=== PATIENT | male | born 1965 | race Caucasian/White ===

== ENCOUNTER 2020-05-28 04:43 | Emergency (ER) | payer OTHER ==
[~2020-05-28] VITALS: Ht 175.3 cm; Wt 74.8 kg
[2020-05-28] MEDS ORDERED: IBUPROFEN 400 MG TAB PO ONE (05:15)
[2020-05-28] MEDS ORDERED: IBUPROFEN 400 MG TAB ONE (05:33)
[2020-05-28] MEDS ORDERED: TETANUS/DIPHTHERIA TOX ADULT 0.5 ML SYR ONE (05:33)
[2020-05-28] MEDS ORDERED: AUGMENTIN 500-1 EACH PO (05:37)
[2020-05-28] MEDS ORDERED: NAPROSYN500 MG PO (05:37)
--- NOTE | 2020-05-28 05:44 | Emergency Department Note ---
History of Present Illnes History of Present Illness Chief Complaint: Laceration History of Present Illness This is a 54 year old male Chief Complaint Comment PT C/O LACERATION TO POSTERIOR RT ELBOW AREA, STATES HE WAS AT WORK AND HIS GLOVED RT HAND GOT CAUGHT IN A CONVEYOR BELT, WHEN PT WENT TO [employer], HIS ELBOW SOME HOW BRUSHED UP AGAINST A PIECE OF METAL AND CAUSED A LARGE LACERATION TO THE POSTERIOR ASPECT OF PTS RIGHT ELBOW. PT HAS LARGE BANDAGE IN PLACE, REMOVED AND NOTED TO HAVE A 10-12 CM LACERATION TO AREA, EDGES ARE SLIGHTLY JAGGED, MILD BLEEDING NOTED, REDRESSED FOR MD TO EVAL FOR POSSIBLE SUTURES . Historian: Patient Arrival Mode: Car Onset (how long ago): hour(s) (2) Location: right elbow Quality: sharp Radiation: Denies non-radiation, Denies back, Denies neck, Denies extremity, Denies abdomen, Denies periumbilical, Denies flank, Denies proximal, Denies distal, Denies other Severity: moderate Onset quality: gradual Duration (how long): hour(s) (2) Timing of current episode: constant Progression: unchanged Chronicity: new Context: Denies recent illness, Denies recent surgery, Denies recent immobilization, Denies recent travel, Denies trauma/injury, Denies new medications, Denies hx of DVT/PE, Denies non-compliance w/ medications, Denies other Relieving factors: none Exacerbating factors: none Associated symptoms: Denies denies other symptoms, Denies confusion, Denies chest pain, Denies cough, Denies diaphoresis, Denies fever/chills, Denies hea daches, Denies loss of appetite, Denies malaise, Denies nausea/vomiting, Denies rash, Denies seizure, Denies shortness of breath, Denies syncope, Denies weakness, Denies other Treatments prior to arrival: none Past Medical/Family History Physician Review I have reviewed the patient's past medical and family history. Any updates have been documented here. Past Medical History Recent Fever: No Clinical Suspicion of Infectio: No New/Unexplained Change in Ment: No Past Medical History: None Other Surgery: LT KNEE X4 Social History Smoking Cessation: Never Smoker Counseling Performed: No Alcohol Use: Occasional Any Illegal Drug Use: No Physically hurt or threatened: No Other Any Pre-Existing Lines (PICC,: No Review of Systems Review of Systems Constitutional: Reports no symptoms EENTM: Reports no symptoms Cardiovascular: Reports no symptoms Respiratory: Reports no symptoms Gastrointestinal: Reports no symptoms Genitourinary: Reports no symptoms Musculoskeletal: Reports as per HPI Integumentary: Reports as per HPI Neurological: Reports no symptoms Psychological: Reports no symptoms Endocrine: Reports no symptoms Hematological/Lymphatic: Reports no symptoms Physical Exam Related Data Allergies: Coded Allergies: No Known Allergies (Unverified , 05/28/20) Triage Vital Signs Vital Signs Date Time Temp Pulse Resp B/P (MAP) Pulse Ox O2 Delivery O2 Flow Rate FiO2 05/28/20 05:00 97.6 66 18 133/80 100 Room Air Vital signs reviewed: Yes Physical Exam CONSTITUTIONAL Constitutional: Present well-developed, Present well-nourished HENT HENT: Present normocephalic, Present atraumatic, Present oropharynx clear/moist, Present nose normal HENT L/R: Present left ext ear normal, Present right ext ear normal EYES Eyes: Reports PERRL, Reports conjunctivae normal NECK Neck: Present ROM normal PULMONARY Pulmonary: Present effort normal, Present breath sounds normal CARDIOVASCULAR Cardiovascular: Present regular rhythm, Present heart sounds normal, Present capillary refill normal, Present normal rate GASTROINTESTINAL Abdominal: Present soft, Present nontender, Present bowel sounds normal GENITOURINARY Genitourinary: Present exam deferred SKIN Skin: Present warm, Present dry MUSCULOSKELETAL Musculoskeletal: Present ROM normal, Present tenderness, Present other (laceration right elbow) NEUROLOGICAL Neurological: Present alert, Present oriented x 3, Present no gross motor or sensory deficits PSYCHOLOGICAL Psychological: Present mood/affect normal, Present judgement normal Procedures Laceration Laceration: Laceration 1 Site: upper extremity Side: right Size (cm): 14 Depth: simple, single layer Local anesthesia: lidocaine 1% Amount of anesthesia (mL): 20 Skin layer closed with: nylon Size (cm): 4-0 Number of sutures: 14 Technique: simple, interrupted Assessment & Plan Medical Decision Making MDM laceration Reassessment Reassessment time: 05:43 Reassessment better Assessment & Plan Final Impression: (1) Laceration of right elbow (2) Acute pain due to trauma Depart Disposition: HOME, SELF-CARE Last Vital Signs Date Time Temp Pulse Resp B/P (MAP) Pulse Ox O2 Delivery O2 Flow Rate FiO2 05/28/20 05:00 97.6 66 18 133/80 100 Room Air Home Meds Active Scripts Naproxen (NAPROSYN) 500 Mg Tablet, 500 MG PO BID for pain, #20 TAB Prov:JAGJIT MORRISON MD 05/28/20 Amoxicillin/Potassium Clav (AUGMENTIN 500-125 TABLET) 1 Each Tablet, 500 MG PO TID, #30 TAB Prov:JAGJIT MORRISON MD 05/28/20 Medications in the ED Ibuprofen 400 mg ONCE ONCE PO ; Start 05/28/20 at 05:15; Stop 05/28/20 at 05:21; Status DC Ibuprofen 400 mg STK-MED ONCE .ROUTE ; Start 05/28/20 at 05:33; Stop 05/28/20 at 05:30; Status DC Tetanus/ Diphtheria Toxoids 0.5 ml STK-MED ONCE .ROUTE ; Start 05/28/20 at 05:33; Stop 05/28/20 at 05:30; Status DC JAGJIT MORRISON MD May 28, 2020 05:44
[2020-05-28] MEDS ORDERED: TETANUS/DIPHTHERIA TOX ADULT 0.5 ML SYR IM ONE (05:45)
== END 2020-05-28 05:59 | disposition home or self-care (01) ==
LOC: FSED 05:25
DX: S51.011A Laceration without foreign body of right elbow, initial encounter (principal); W31.89XA Contact with other specified machinery, initial encounter; Y99.0 Civilian activity done for income or pay
CPT/HCPCS: 90471; 90714; 99283